=== PATIENT | female | born 2000 | race African-American/Black ===

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

== ENCOUNTER 2019-03-18 21:06 | Emergency (ER) | payer SELFPAY ==
[~2019-03-18] VITALS: Ht 160 cm; Wt 65.8 kg
[~2019-03-18 21:06] MED LIST: CYCL5TAB PO
[2019-03-18 21:49] VITALS: BP 119/75
[2019-03-18 21:50] LABS: BASO % 1 % (0-3); EOS % 1 % (0-3); HEMATOCRIT 37.1 % (36.0-47.0); HEMOGLOBIN 12.2 g/dL (12.0-15.5); LYMPH # 1.9 x10^3/uL (1.0-4.8); LYMPH % 30 % (24-48); MEAN CORPUSCULAR HEMOGLOBIN 28 pg (25-35); MEAN CORPUSCULAR HGB CONC 33 g/dL (31-37); MEAN CORPUSCULAR VOLUME 84 fL (79-100); MONO # 0.5 x10^3/uL (0.0-1.1); MONO % 8 % (0-9); NEUT # 3.7 x10^3/uL (1.8-7.7); NEUT % 60 % (31-73); PLATELET COUNT 148 x10^3/uL (140-400); RED BLOOD COUNT 4.39 x10^6/uL (3.50-5.40); RED CELL DISTRIBUTION WIDTH 12.8 % (11.5-14.5); WHITE BLOOD COUNT 6.2 x10^3/uL (4.0-11.0)
[2019-03-18] MEDS ORDERED: ONDA4TAB7 PO (22:54)
--- NOTE | 2019-03-18 23:10 | PHYS DOC ---
Past Medical History Past Medical History: No Pertinent History Past Surgical History: No Surgical History Alcohol Use: None Drug Use: None Adult General Chief Complaint Chief Complaint: ABDOMINAL PAIN HPI HPI Patient is a 18 year old -[place] female presents with epigastric abdominal pain, nausea and diarrhea for the past 4 days. Patient states she is 2 days late from her menstrual period. Reports pelvic cramping and back pain similar to premenstrual cramps. No vaginal bleeding. Patient also reports scant vaginal discharge. No fever chills, lower abdominal pain. No urinary frequency urgency or burning. No history of STDs or concern No other acute symptoms or complaints. Patient is not currently on control. [] Review of Systems Review of Systems Review of symptoms as per history of present illness. All other systems were reviewed and found to be within normal limits, except as documented in this note. Allergies Allergies Allergies Coded Allergies Type Severity Reaction Last Updated Verified No Known Drug Allergies 06/13/17 No Physical Exam Physical Exam Constitutional: Well developed, well nourished, no acute distress, non-toxic a ppearance. [] HENT: Normocephalic, atraumatic, bilateral external ears normal, oropharynx moist, no oral exudates, nose normal. [] Eyes: PERRLA, EOMI, conjunctiva normal, no discharge. [] Neck: Normal range of motion, no tenderness, supple, no stridor. [] Cardiovascular:Heart rate regular rhythm, no murmur [] Lungs & Thorax: Bilateral breath sounds clear to auscultation [] Abdomen: Bowel sounds normal, soft, no tenderness. [] Skin: Warm, dry, no erythema, no rash. [] Back: No tenderness, no CVA tenderness. [] Extremities: No tenderness, no cyanosis, no clubbing, ROM intact, no edema. [] Neurologic: Alert and oriented X 3, normal motor function, normal sensory function, no focal deficits noted. [] Psychologic: Affect normal, judgement normal, mood normal. [] Current Patient Data Vital Signs Vital Signs Date Time Temp Pulse Resp B/P (MAP) Pulse Ox O2 Delivery O2 Flow Rate FiO2 03/18/19 21:49 82 119/75 (90) 97 Room Air 03/18/19 21:15 97.9 15 97.9 Lab Values Laboratory Tests Test 03/18/19 21:12 03/18/19 21:42 POC Urine HCG, Qualitative Hcg positive (Negative) White Blood Count 6.2 x10^3/uL (4.0-11.0) Red Blood Count 4.39 x10^6/uL (3.50-5.40) Hemoglobin 12.2 g/dL (12.0-15.5) Hematocrit 37.1 % (36.0-47.0) Mean Corpuscular Volume 84 fL (79-100) Mean Corpuscular Hemoglobin 28 pg (25-35) Mean Corpuscular Hemoglobin Concent 33 g/dL (31-37) Red Cell Distribution Width 12.8 % (11.5-14.5) Platelet Count 148 x10^3/uL (140-400) Neutrophils (%) (Auto) 60 % (31-73) Lymphocytes (%) (Auto) 30 % (24-48) Monocytes (%) (Auto) 8 % (0-9) Eosinophils (%) (Auto) 1 % (0-3) Basophils (%) (Auto) 1 % (0-3) Neutrophils # (Auto) 3.7 x10^3/uL (1.8-7.7) Lymphocytes # (Auto) 1.9 x10^3/uL (1.0-4.8) Monocytes # (Auto) 0.5 x10^3/uL (0.0-1.1) Eosinophils # (Auto) 0.0 x10^3/uL (0.0-0.7) Basophils # (Auto) 0.0 x10^3/uL (0.0-0.2) Maternal Serum HCG Beta Subunit 258 mIU/mL (0-5) H Laboratory Tests 03/18/19 21:42 EKG EKG [] Radiology/Procedures Radiology/Procedures [] Course & Med Decision Making Course & Med Decision Making Pertinent Labs and Imaging studies reviewed. (See chart for details) [Patient timeline consistent with early . Recommend supportive care with OB follow-up. Return precautions reviewed.] Dragon Disclaimer Dragon Disclaimer This electronic medical record was generated, in whole or in part, using a voice recognition dictation system. Departure Departure Impression: Primary Impression: Disposition: 01 HOME/RESIDENCE PRIOR TO ADM Condition: STABLE Referrals: IVANNA HENDRIX MD Patient Instructions: - First Trimester, [id number] Additional Instructions: Please take daily women's multivitamin and Dramamine (OTC) for nausea and Zofran as needed for additional relief. Follow-up with on-call [facility] to schedule your first appointment. Return to the ED if new or concerning symptoms. Scripts Ondansetron Hcl (ZOFRAN) 4 Mg Tablet 1 TAB PO Q6HRS, #14 TAB 0 Refills Prov: MARTINEZ TRIPLETT DO 03/18/19 MARTINEZ TRIPLETT DO Mar 18, 2019 23:09
== END 2019-03-18 23:08 | disposition home or self-care (01) ==
LOC: ER 21:06
DX: Z33.1 Pregnant state, incidental (principal); R10.13 Epigastric pain; R11.0 Nausea; N89.8 Other specified noninflammatory disorders of vagina; M54.9 Dorsalgia, unspecified
CPT/HCPCS: 36415; 81025; 84702; 85025; 86901; 99284